=== PATIENT | female | born 1935 | race Caucasian/White ===

== ENCOUNTER → 2017-02-21 | Outpatient (CLI) | payer OTHER, MEDICARE | LOC: BHFA 13:15 | PROVIDERS: ATTEND Internal Medicine Interventional Cardiology | DX: I48.2 Chronic atrial fibrillation (principal); I25.10 Atherosclerotic heart disease of native coronary artery without angina pectoris; R00.1 Bradycardia, unspecified ==

== ENCOUNTER → 2017-10-27 | Outpatient (CLI) | payer OTHER, MEDICARE | LOC: FIMAGING 15:01 | PROVIDERS: ATTEND Internal Medicine Interventional Cardiology | DX: I83.812 Varicose veins of left lower extremity with pain (principal) ==

== ENCOUNTER 2017-11-04 09:54 | Day surgery (SDC) | payer OTHER, MEDICARE ==
[2017-11-04] MEDS ORDERED: NS 1,000 ML IV ONE (09:55)
[2017-11-04] MEDS ORDERED: FAMOTIDINE 20 MG TAB PO ONE (09:55)
[2017-11-04] MEDS ORDERED: DIAZEPAM 5 MG TAB PO ONE (09:55)
[2017-11-04] MEDS ORDERED: ASPIRIN EC 325 MG TAB PO ONE (09:55)
[2017-11-04] MEDS ORDERED: diphenhydrAMINE 25 MG CAP PO ONE (09:55)
--- NOTE | 2017-11-04 10:21 | CPEKG ---
Heart Rate: 74 RR Interval: 811 P-R Interval: 237 QRSD Interval: 116 QT Interval: 460 QTC Interval: 511 P [place]: 79 QRS [place]: -2 T Wave [place]: 194 EKG Severity - ABNORMAL ECG - EKG Impression: Sinus rhythm EKG Impression: VENTRICULAR PREMATURE COMPLEX EKG Impression: FIRST DEGREE AV BLOCK EKG Impression: IVCD EKG Impression: LEFT VENTRICULAR HYPERTROPHY Electronically Signed By: Stalin Snell 06-Nov-2017 07:32:49
[2017-11-04] MEDS ORDERED: LIDOCAINE 1% 300 MG/30 ML SDV ONE (10:40)
[2017-11-04] MEDS ORDERED: HEPARIN 10,000 UNIT/10 ML MDV (1,000 UNIT/ML) ONE (10:40)
[2017-11-04] MEDS ORDERED: IOPAMIDOL (ISOVUE-370) 150 ML BTL IV ONE (10:40)
[2017-11-04] MEDS ORDERED: VERAPAMIL 5 MG/2 ML VIAL ONE (10:40)
--- NOTE | 2017-11-04 10:42 | PDPROPOC ---
Sedation Plan of Care Sedation Plan of Care: vital signs stable, mental status noted, patient educated of risks, benefits, alternatives, patient can tolerate sedation ASA Classification: ASA 3 Planned drugs: fentanyl, midazolam Mallampati Score: Class 2 Mallampati Reference Image: Patient passed 3-3-2 rule?: Yes
--- NOTE | 2017-11-04 10:43 | PDHPUP ---
History & Physical Update H&P update statement: This history and physical update is based on an assessment of the patient which was completed after admission or registration (within 24 hours), but prior to the surgery/procedure. H&P update: H&P reviewed & patient examined (films fro 2015 reviewed.), no change in patient's condition since H&P completed
[2017-11-04 10:59] LABS: INR 1.22 (0.83-1.16); PROTIME(PATIENT) 15.6 SEC (12.0-15.0)
[2017-11-04] MEDS ORDERED: MIDAZOLAM 2 MG/2 ML VIAL ONE (11:33)
[2017-11-04] MEDS ORDERED: fentaNYL 100 MCG/2 ML INJ ONE ×2 (11:33→12:34)
[2017-11-04] MEDS ORDERED: NITROGLYCERIN 0.4 MG BTL SL PRN (12:41)
[2017-11-04] MEDS ORDERED: ATROPINE SULFATE 1 MG/10 ML SYR IVP PRN (12:41)
[2017-11-04] MEDS ORDERED: ONDANSETRON 4 MG/2 ML VIAL IVP PRN (12:41)
[2017-11-04 12:42] LABS: PLATELET COUNT 162 10^3/uL (150-400)
--- NOTE | 2017-11-04 12:44 | PDDXCAT ---
Diagnostic Cath Note - . Date: 11/04/17 Breast Buffer: [place] Indication: Class III or IV angina, which improves to class I/II w medical therapy - Procedure Access: right groin Procedure: left heart catheterization, coronary angiography, left ventriculogram , right heart catheterization - Materials Left Heart Cath size: 6F Left Heart Cath materials: standard multipack (JL4, JR4, pigtail) Right Heart Cath size: 7F Right Heart Cath materials: PWP catheter - Findings-Left Heart Catheterization LM: Unobstructed LAD: Stent widely patent with luminal irregularities not more than 20% LCX: Luminal irregularities of not more than 10% RCA: Dominant vessel without focal stenosis EDP: 18 mm of mercury LVEF: Not assessed Wall motion: Not assessed - Findings-Right Heart Catheterization RA: 20 mm of mercury RV: 80/ 24 mm of mercury PA: 80/30 mm of mercury PAOP: 35 mm of mercury CO: Mixed venous oxygen saturation 51% Complications: Inability to achieve IV access Estimated blood loss: <50ml Closure method: Angioseal Assessment: Widely patent site of prior stenting. 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 Plan: Oxygen to maintain saturations greater than 90%. Resume anticoagulation. Consider pulmonary hypertension specialist Patient Problems: Problems Problem Status Onset Iron deficiency anemia Acute Valvular heart disease Acute PVC (premature ventricular contraction) Acute Hypertension Acute Chronic Disease Mgmt/Transitional Care Acute
== END 2017-11-04 17:30 | disposition home or self-care (01) ==
LOC: FCATH 09:54
PROVIDERS: ATTEND Internal Medicine Interventional Cardiology
PROC: B2111ZZ Fluoroscopy of Multiple Coronary Arteries using Low Osmolar Contrast (ICD-10-PCS; principal; 2017-11-04)
PROC: B2151ZZ Fluoroscopy of Left Heart using Low Osmolar Contrast (ICD-10-PCS; principal; 2017-11-04)
PROC: 4A023N8 Measurement of Cardiac Sampling and Pressure, Bilateral, Percutaneous Approach (ICD-10-PCS; principal; 2017-11-04)
DX: I27.20 Pulmonary hypertension, unspecified (principal); I25.10 Atherosclerotic heart disease of native coronary artery without angina pectoris; R06.02 Shortness of breath; R55 Syncope and collapse; I49.5 Sick sinus syndrome; G89.29 Other chronic pain; I48.91 Unspecified atrial fibrillation; I50.9 Heart failure, unspecified; I11.0 Hypertensive heart disease with heart failure; E78.5 Hyperlipidemia, unspecified; Z86.718 Personal history of other venous thrombosis and embolism; Z95.0 Presence of cardiac pacemaker; Z95.5 Presence of coronary angioplasty implant and graft; Z96.641 Presence of right artificial hip joint; Z96.653 Presence of artificial knee joint, bilateral
CPT/HCPCS: J1644; J2250; J3010; Q9967